=== PATIENT | female | born 1990 | race Caucasian/White ===

== ENCOUNTER 2016-11-14 05:23 | Inpatient (IN) | payer BC ==
[2016-11-14] VITALS (10 sets, daily range): BP systolic 104–138; RESP 16–20; TEMP 97.7–98.6; Ht 175.3 cm; Wt 98.9 kg
[~2016-11-14] VITALS: Ht 175.3 cm; Wt 98.9 kg
[2016-11-14] MEDS ORDERED: ACETAMINOPHEN 325 MG TAB PO PRN (06:00)
[2016-11-14] MEDS ORDERED: OXYTOCIN 15 UNITS/250 ML NS 250 ML IV SCH ×3 (06:00→13:25)
[2016-11-14] MEDS ORDERED: ALU/MAG/SIM 30 ML UDC PO PRN (06:00)
[2016-11-14] MEDS ORDERED: CEFAZOLIN (LD/OB) 100 ML IV PRN (06:00)
[2016-11-14] MEDS ORDERED: ONDANSETRON 4 MG VIAL IV PRN (06:00)
[2016-11-14] MEDS ORDERED: METOCLOPRAMIDE 10 MG/2 ML VIAL IV PUSH PRN (06:00)
[2016-11-14] MEDS ORDERED: TERBUTALINE 1 MG/ML VIAL SUBQ PRN (06:00)
[2016-11-14] MEDS ORDERED: FAMOTIDINE 20 MG INJ IV PRN (06:00)
[2016-11-14] MEDS ORDERED: LIDOCAINE 1% 30 ML PF INFILTRATE ONE (06:00)
[2016-11-14] MEDS ORDERED: FAMOTIDINE 20 MG TAB PO PRN (06:00)
[2016-11-14] MEDS ORDERED: PROMETHAZINE 25 MG/ML VIAL IV PRN (06:00)
[2016-11-14] MEDS: LACT RINGERS 1,000 ML IV SCH ×3 (06:09→10:15)
[2016-11-14] MEDS ORDERED: ROPIV/FENT 0.2%-2MCG/ML 100 ML EPIDURAL ONE (07:18)
[2016-11-14] MEDS ORDERED: FENTANYL 100 MCG/2 ML AMP ONE (07:18)
[2016-11-14] MEDS ORDERED: BUPIVACAINE 0.25% PF 10ML EPIDURAL ONE (07:47)
[2016-11-14] MEDS ORDERED: ROPIV/FENT 0.2%-2MCG/ML 100 ML EPIDURAL SCH (08:30)
[2016-11-14] MEDS ORDERED: SODIUM CHLORIDE 0.9% 500 ML IV PRN (08:30)
[2016-11-14] MEDS ORDERED: LACT RINGERS 500 ML IV ONE (08:30)
[2016-11-14] MEDS ORDERED: FENTANYL 100 MCG/2 ML AMP EPIDURAL ONE (08:30)
[2016-11-14] MEDS ORDERED: LACT RINGERS 500 ML IV PRN (08:30)
[2016-11-14] MEDS ORDERED: DERMOPLAST SPRAY TOPICAL PRN (13:25)
[2016-11-14] MEDS ORDERED: MAG HYDROX 30 ML UDC PO PRN (13:25)
[2016-11-14] MEDS ORDERED: ASTRINGENT MED PADS 40'S TOPICAL PRN (13:25)
[2016-11-14] MEDS ORDERED: TDaP 0.5 ML VIAL IM.VACC ONE (13:25)
[2016-11-14] MEDS ORDERED: SALINE FLUSH 10 ML FLUSH PRN (13:25)
[2016-11-14] MEDS: Ibuprofen 600 MG TAB PO SCH (15:37)
[2016-11-14] MEDS: **ONLY ANESTEHSIA MAY ORDER OPIATES WHILE ON EPIDURAL XX SCH (20:11)
[2016-11-15] MEDS: Ibuprofen 600 MG TAB PO SCH ×4 (00:07→18:31)
[2016-11-15 01:31] VITALS: BP_SYST 113; RESP 16; TEMP 98
[2016-11-15 05:23] VITALS: BP_SYST 115; RESP 18; TEMP 97.5
[2016-11-15] MEDS: **ONLY ANESTEHSIA MAY ORDER OPIATES WHILE ON EPIDURAL XX SCH ×2 (07:16→20:00)
[2016-11-15] MEDS: DOCUSATE SOD 100 MG CAP PO SCH (08:13)
[2016-11-15 09:17] VITALS: BP_SYST 117; RESP 16; TEMP 97.4
[2016-11-15 12:08] VITALS: BP_SYST 117; RESP 16; TEMP 97.4
[2016-11-15] MEDS ORDERED: Flu Vaccine Quadrivalent 60 MCG/0.5 ML IM.VACC ONE (12:10)
[2016-11-15 17:13] VITALS: BP_SYST 108; RESP 18; TEMP 98.1
[2016-11-16 05:46] VITALS: BP_SYST 124; RESP 16; TEMP 97.8
[2016-11-16] MEDS: Ibuprofen 600 MG TAB PO SCH ×3 (06:00→12:06)
[2016-11-16] MEDS: DOCUSATE SOD 100 MG CAP PO SCH (09:00)
[2016-11-16 09:14] VITALS: BP_SYST 129; TEMP 97.9
[2016-11-16 09:15] VITALS: RESP 18
[2016-11-16 10:02] VITALS: BP_SYST 129; RESP 18; TEMP 97.9
[2016-11-16] MEDS ORDERED: TDaP 0.5 ML VIAL IM.VACC ONE (10:49)
[2016-11-16] MEDS ORDERED: Flu Vaccine Quadrivalent 60 MCG/0.5 ML IM.VACC ONE (10:55)
== END 2016-11-16 12:11 | disposition home or self-care (01) | DRG 775 ==
LOC: LDOP 05:23 → LD 05:40 → OB 16:24
PROVIDERS: ADMIT Obstetrics & Gynecology Reproductive Endocrinology; ATTEND Obstetrics & Gynecology Reproductive Endocrinology
PROC: 10E0XZZ Delivery of Products of Conception, External Approach (ICD-10-PCS; principal; 2016-11-14)
DX: O69.81X0 Labor and delivery complicated by cord around neck, without compression, not applicable or unspecified (principal); Z37.0 Single live birth; Z3A.37 37 weeks gestation of pregnancy; Z23 Encounter for immunization
CPT/HCPCS: 85014; 85018; 85025; 86850; 86900; 86901; 90471; 96372